=== PATIENT | male | born 1955 | race African-American/Black ===

== ENCOUNTER 2017-07-07 03:38 | Emergency (ER) | payer OTHER | END 2017-07-07 06:21 | disposition short-term general hospital (02) | LOC: D.ER 03:38 | DX: S02.40FA Zygomatic fracture, left side, initial encounter for closed fracture (principal); S02.32XA Fracture of orbital floor, left side, initial encounter for closed fracture; S02.40DA Maxillary fracture, left side, initial encounter for closed fracture; Y04.2XXA Assault by strike against or bumped into by another person, initial encounter; Y93.89 Activity, other specified; Y92.019 Unspecified place in single-family (private) house as the place of occurrence of the external cause; T79.7XXA Traumatic subcutaneous emphysema, initial encounter; T14.8XXA Other injury of unspecified body region, initial encounter; S05.42XA Penetrating wound of orbit with or without foreign body, left eye, initial encounter; S11.91XA Laceration without foreign body of unspecified part of neck, initial encounter ==

== ENCOUNTER → 2017-07-27 16:18 | Emergency (ER) | payer OTHER ==
[~2017-07-27] VITALS: Ht 182.9 cm; Wt 90.7 kg
[2017-07-27 16:56] VITALS: Ht 182.9 cm; Wt 90.7 kg
[2017-07-27 17:28] VITALS: BP 132/068
== END | disposition home or self-care (01) ==
LOC: D.ER 16:18
DX: S11.91XD Laceration without foreign body of unspecified part of neck, subsequent encounter (principal); X58.XXXD Exposure to other specified factors, subsequent encounter; Z48.02 Encounter for removal of sutures